=== PATIENT | female | born 1985 ===

== ENCOUNTER 2022-09-09 19:58 | Emergency (ER) | payer SELFPAY ==
[~2022-09-09] VITALS: Ht 167.6 cm; Wt 79.4 kg
[2022-09-09] MEDS ORDERED: NARCAN4 M1 (21:39)
== END 2022-09-09 21:48 ==
LOC: ER 19:58 → EDBD 19:58 → ER 21:48
DX: T40.411A Poisoning by fentanyl or fentanyl analogs, accidental (unintentional), initial encounter (principal)
CPT/HCPCS: 96372; 99284-25; J2310; J2405